=== PATIENT | female | born 1965 | race Caucasian/White ===

== ENCOUNTER 2024-05-11 10:36 | Emergency (ER) | payer SELFPAY ==
[2024-05-11 11:12] LABS: #Basophils 0.1 thou/uL (0.0-0.2); #Eosinphils 0.1 thou/uL (0.0-0.7); #Monocytes 0.6 thou/uL (0.11-0.59); #Neutrophils 4.6 thou/uL (1.40-6.50); %Basophils 0.8 % (0.0-1.0); %Eosinophils 1.5 % (0.0-10.0); %Lymphocytes 26.9 % (21.0-51.0); %Monocytes 8.3 % (0.0-10.0); %Neutrophils 62.5 % (42.0-75.0); Hematocrit 36.1 % (36.0-47.0); Hemoglobin 12.6 g/dL (12.0-16.0); Mean Corpuscular Hemoglobin 30.5 pg (27.0-31.0); Mean Corpuscular Volume 87.1 fl (78.0-98.0); Mean Platelet Volume 6.9 fL (7.4-10.4); Platelet Count 194 10x3/uL (130-400); RBC Distribution Width 11.8 % (11.5-14.5); Red Blood Cell (RBC) Count 4.15 mill/uL (4.20-5.40); White Blood Cell (WBC) Count 7.4 10x3/uL (4.8-10.8)
[2024-05-11 11:26] LABS: ALT (SGPT) 77 U/L (8-55); AST (SGOT) 53 U/L (5-34); Acetaminophen Less than 10 mcg/mL (Less than 10); Albumin 4.1 g/dL (3.4-4.8); Alcohol Less than 10.0 mg/dL (Less than 10); Alkaline Phosphatase 93 U/L (40-110); Anion Gap 16 mmol/L (10-20); BUN (Urea Nitrogen) 10 mg/dL (9.8-20.1); Bilirubin, Total 1.3 mg/dL (0.2-1.2); Calc. Creatinine Clearance 0 mL/min (70-130); Calcium 9.8 mg/dL (7.8-10.44); Carbon Dioxide 21 mmol/L (23-31); Chloride 108 mmol/L (98-107); Estimated GFR 81; Globulin 4.4 g/dL (2.4-3.5); Glucose 126 mg/dL (80-115); Potassium 4.2 mmol/L (3.5-5.1); Protein, Total 8.5 g/dL (5.8-8.1); Salicylate Less than 8.0 mg/dL (Less than 8.0); Sodium 141 mmol/L (136-145)
[2024-05-11 11:28] LABS: Troponin I 0.368 ng/mL (< 0.028)
[2024-05-11] MEDS ORDERED: Aspirin Chewable 81 MG TAB ONE (11:35)
[2024-05-11] MEDS ORDERED: Nitroglycerin 2% Ointment 1 INCH/1 GM Packet ONE (11:35)
[2024-05-11] MEDS ORDERED: Enoxaparin 30 MG (0.3 mL) SYRINGE ONE (11:35)
[2024-05-11 11:40] LABS: Bilirubin Negative (Negative); Blood, Urine Trace (Negative); Clarity Clear (Clear); Glucose, Urine (Dipstick) Negative (Negative); Ketone, Urine Negative (Negative); Leukocyte Negative (Negative); Nitrite Negative (Negative); Protein, Urine (Dipstick) 100 mg/dL (Neg-Trace); Urobilinogen 0.2 mg/dL (Less than 2)
[2024-05-11] MEDS ORDERED: Enoxaparin 100 MG (1 mL) SYRINGE ONE (11:44)
[2024-05-11 11:46] LABS: Bacteria/HPF Rare-Few HPF (None Seen); CAUTI Indications for Culture Dysuria,urgency,freq; RBC/HPF 0-3 HPF (0-3); Squamous Epithelial 0-3 HPF (0-3); WBC/HPF 0-3 HPF (0-3)
[2024-05-11 11:48] LABS: Urine Culture Reflex No No
[2024-05-11 11:52] LABS: Amphetamine Not Detected (NotDetected); Barbiturates Screen Not Detected (NotDetected); Benzodiazepine Screen Not Detected (NotDetected); Cocaine Metabolite Screen Not Detected (NotDetected); Methadone Not Detected (NotDetected); Methamphetamine Not Detected (NotDetected); Opiate Screen Not Detected (NotDetected); Oxycodone Screen Not Detected (NotDetected); Phencyclidine (PCP) Not Detected (NotDetected); THC/Cannabinoid Screen Detected (NotDetected); Tricyclic Screen Not Detected (NotDetected)
[2024-05-11] MEDS ORDERED: Furosemide 40 MG (4 mL) VIAL ONE (12:47)
[2024-05-11 14:08] LABS: Troponin I 0.397 ng/mL (< 0.028)
[2024-05-11] MEDS ORDERED: Iopamidol 370 76% 100 ML VIAL ONE (15:22)
[2024-05-11] MEDS ORDERED: Acetaminophen 325 MG TAB ONE (16:18)
[2024-05-11 20:55] LABS: Troponin I 0.388 ng/mL (< 0.028)
[2024-05-11 23:25] LABS: SARS-CoV-2 N1 Negative; SARS-CoV-2 N2 Negative; SARS-CoV-2 RNAse P1 Positive; SARS-CoV-2 RNAse P2 Positive
== END 2024-05-11 21:06 ==
LOC: BURERS 10:36
DX: I21.4 Non-ST elevation (NSTEMI) myocardial infarction (principal)
CPT/HCPCS: 36415; 71045; 71275; 80053; 80306; 80307; 81001; 83880; 84484; 85025; 85379; 87635; 93005; 94760; 96372; 96374; J1650; J1940; Q9967

== ENCOUNTER 2025-07-31 08:47 | Outpatient (CLI) | payer OTHER ==
[2025-07-31 10:21] LABS: Cardiac Risk 3.6 (Less than 4.5); Cholesterol 129.0 mg/dl (< 200 Desired); HDL Cholesterol 36.0 mg/dL (>60 Neg Risk); LDL Cholesterol, Calculated 76.0 mg/dL; Triglycerides 87.0 mg/dL (Less than 150)
== END 2025-07-31 08:48 | disposition home or self-care (01) ==
LOC: BURLAB 08:47
PROVIDERS: ATTEND Physician Assistant Medical
DX: Z48.812 Encounter for surgical aftercare following surgery on the circulatory system (principal); Z95.1 Presence of aortocoronary bypass graft
CPT/HCPCS: 36415; 80061